=== PATIENT | female | born 1975 | race Caucasian/White ===

== ENCOUNTER 2024-05-05 11:18 | Outpatient (REF) | payer OTHER, SELFPAY ==
[2024-05-05 16:43] LABS: Alanine Aminotransferase 27 U/L (0-31); Anion Gap 13 (12-20); Aspartate Amino Transferase 25 U/L (5-31); Bilirubin Direct 0.1 mg/dL (0.0-0.5); Bilirubin Total 0.4 mg/dL (0.0-1.0); Blood Urea Nitrogen 18 mg/dL (9-16); Calcium 9.1 mg/dL (8.4-10.2); Carbon Dioxide 25 mmol/L (22-29); Chloride 106 mmol/L (96-108); Cholesterol 185 mg/dL (<200); Estimated Glomerular Filt Rate > 60; Glucose Random 92 mg/dL (60-115); HDL Cholesterol 43 mg/dL (>40); LDL Cholesterol Calculated 112 mg/dL (<100); Potassium 3.9 mmol/L (3.3-5.1); Sodium 140 mmol/L (135-145); Total Protein 7.2 g/dL (6.5-8.0); Triglycerides 150 mg/dL (<150)
[2024-05-05 17:22] LABS: Alkaline Phosphatase 90 U/L (39-117)
[2024-05-06 04:15] LABS: HIV AB/AG Nonreactive (Nonreactive); HIV Num 1 0.05 S/CO (0.00-0.99); ~HepC Num1 0.11 S/CO (0.00-0.79); ~Hepatitis C Antibody Nonreactive (Nonreactive)
== END 2024-05-05 11:19 | disposition home or self-care (01) ==
LOC: HO.CHCLDS 11:18
PROVIDERS: Visit Provider Student in an Organized Health Care Education/Training Program
DX: I10 Essential (primary) hypertension (principal); Z11.3 Encounter for screening for infections with a predominantly sexual mode of transmission
CPT/HCPCS: 36415; 80048; 80061; 80076; 86803; 87389

== ENCOUNTER 2024-05-12 14:41 | Outpatient (REF) | payer OTHER, SELFPAY ==
[2024-05-13 11:11] LABS: HPV 16,18/45 See PAP report
== END 2024-05-12 14:42 | disposition home or self-care (01) ==
LOC: HO.LNP 14:41
PROVIDERS: Visit Provider Family Medicine
DX: Z12.4 Encounter for screening for malignant neoplasm of cervix (principal)
CPT/HCPCS: 87624; 88175

== ENCOUNTER 2024-06-09 10:36 | Outpatient (REF) | payer OTHER, SELFPAY ==
--- NOTE | ~2024-06-09 | XR_ITS ---
EXAMINATION: XR CHEST CLINICAL INFORMATION: Cough. Wheezing. COMPARISON: Chest radiograph dated 12/07/2013. TECHNIQUE: 2 views of the chest were obtained. FINDINGS: The lungs are clear. The cardiomediastinal silhouette is normal in size. There is no pleural effusion or pneumothorax. No acute osseous abnormality. XR/XR chest 2V IMPRESSION: No acute cardiopulmonary findings. Electronically signed by: Houston Cruz MD 06/09/2024 12:35 PM [facility]STINA
== END 2024-06-09 10:37 | disposition home or self-care (01) ==
LOC: HO.HHCX 10:36
PROVIDERS: Visit Provider Emergency Medicine
DX: R05.1 Acute cough (principal)
CPT/HCPCS: 71046

== ENCOUNTER 2024-06-13 09:58 | Outpatient (REF) | payer OTHER, SELFPAY | END 2024-06-13 09:59 | disposition home or self-care (01) | LOC: HO.MAMMO 09:58 | PROVIDERS: PCP Student in an Organized Health Care Education/Training Program; Visit Provider Student in an Organized Health Care Education/Training Program | DX: Z12.31 Encounter for screening mammogram for malignant neoplasm of breast (principal) | CPT/HCPCS: 77063; 77067 ==

== ENCOUNTER → 2024-06-13 10:30 | Outpatient (BNV) | payer OTHER, SELFPAY | PROVIDERS: PCP Student in an Organized Health Care Education/Training Program; Visit Provider Internal Medicine | DX: Z12.31 Encounter for screening mammogram for malignant neoplasm of breast (principal) | CPT/HCPCS: 77063; 77067 ==

== ENCOUNTER 2024-10-14 11:47 | Outpatient (REF) | payer OTHER, SELFPAY ==
--- NOTE | ~2024-10-14 | US_ITS ---
EXAMINATION: MM DIAGNOSTIC DIGITAL BREAST TOMOSYNTHESIS, BILATERAL Bilateral Limited ultrasound. CLINICAL INFORMATION: Call back from screening for bilateral asymmetries. COMPARISON: Mammography: Comparison is made with relevant prior exams. TECHNIQUE: Digital breast mammography with tomosynthesis is performed in both the craniocaudal and mediolateral oblique views along with computer-aided detection (CAD). FINDINGS: The breasts are heterogeneously dense, which may obscure small masses (ACR BI-RADS breast composition Category c). Left: The previously seen asymmetry in the lower left breast on MLO view does not persist on additional imaging projections and likely represented overlapping breast tissue. There are no suspicious calcifications masses or other abnormal findings. Targeted color Doppler ultrasound scanning in the lower central breast demonstrates a simple cyst at 6:00 2 cm from the nipple measuring 7 x 6 x 5 mm otherwise scanning from 40 8:00 demonstrates normal fibroglandular breast tissue. Right: Focal asymmetry in the upper outer breast posterior depth persist on additional imaging projections. In the retroareolar region there are a few subcentimeter oval masses. No suspicious calcifications or other abnormal findings. Targeted color Doppler ultrasound scanning in the upper outer quadrant demonstrates normal fibronodular breast tissue. Targeted color Doppler ultrasound scanning in the retroareolar region demonstrates a hypoechoic oval simple cyst at 9:00 5 cm from nipple measuring 5 x 4 x 4 mm with likely correlates with the oval mass on mammography. Results are provided to the patient at time of visit by the technologist. US/US breast BI limited mamm only IMPRESSION: Left: Simple cyst on ultrasound. Benign. Right: 1. Focal asymmetry in the upper outer quadrant posterior depth without sonographic correlate. Recommend six-month follow-up mammography for further evaluation of stability. 2. Retroareolar oval masses one of which was demonstrated to be a simple to minimally, located cyst on ultrasound. Recommend 6 month follow-up mammography for further evaluation of stability. ASSESSMENT: BI-RADS BI-RADS 3 - Probably benign finding(s) - 6 month follow-up suggested RECOMMENDATION: 6 Month F/U This patient's information was entered into a reminder system with a target due date for their next mammogram. Electronically signed by: Michelle Ceballos DO 10/14/2024 02:56 PM EDT
--- OUTSIDE RECORDS SUMMARY | 2024-10-14 13:20 | XMS_ITS | Clinical Summary ---
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 Role Phone Unavailable Primary Care Provider Unavailabl e Social History Tobacco Use Types Packs/Day Years Used Date Smoking Tobacco: Never Assessed Comments Unknown Sex and Gender Information Value Date Recorded Sex Assigned at Not on file Legal Sex Female 12:23 AM EST Gender Identity Not on file Sexual Orientation Not on file Plan of Treatment Health Maintenance Due Date Last Done Comments Breast Cancer Screening 1975 DTaP,Tdap,and Td Vaccines (1 - Tdap) 01/08/1995 Hepatitis B Vaccines (1 of 3 - 19+ 3-dose series) 01/08/1995 Cervical Cancer Screening: P ap Smear 01/08/1997 COVID-19 Vaccine (2023-2 5 season) 2024 Influenza Vaccine (Season Ended) 2025 HIB Vaccines Aged Out No longer eligi ble based on patient's age to complete this topic HPV Vaccines Aged Out No longer eligi ble based on patient's age to complete this topic Hepatitis A Vaccines Aged Out No long er eligible based on patient's age to complete this topic IPV Vaccines Aged Out No longer eligi ble based on patient's age to complete this topic MMR Vaccines Aged Out No longer eligi ble based on patient's age to complete this topic Meningococcal ACWY Vaccine Aged Out N o longer eligible based on patient's age to complete this topic Meningococcal B Vaccine Aged Out No l onger eligible based on patient's age to complete this topic Pneumococcal Vaccine: Pediat rics (0 to 5 Years) and At-Risk Patients (6 to 64 Years) Aged Out No longer eligible b ased on patient's age to complete this topic RSV Immunization Patients Un melissa 20 months Aged Out No longer eligible b ased on patient's age to complete this topic Varicella Vaccines Aged Out No longer eligible based on patient's age to complete this topic
--- OUTSIDE RECORDS SUMMARY | 2024-10-14 13:20 | XMS_ITS | Clinical Summary ---
Author Organization [employer] Address [address] [facility] [address] [place] [address] Care Team Providers Care Apns Name Role Phone Cortney Naidu MD Primary Care Provider [phone] Allergies No known active allergies Medications diphenhydrAMIN E (BENADryl) 25 MG capsule Take 2 capsules (50 mg) by mouth if needed at bedtime for itching. May take 1-2 capsules prn rashor itching 30 capsule 03/22/20 23 Active fluticasone (Flonase Allergy Relief) 50 MCG/ACT nasal spray Administer 1 spray into each nostril Once per day. Shake gently. Before first use, prime pump. After use, clean tip and replace cap. 16 g 12 06/09/20 24 025 Active albuterol 108 (90 Base) MCG/ACT inhaler Inhale 2 puffs every 4 (four) hours if needed for wheezing or shortness of breath. 18 g 1 06/09/20 24 025 Active Spacer/Aero-Ho lding Chambers (OptiChamber Hollie) misc 1 each every 4 (four) hours if needed (asthma). 1 each 06/09/20 24 Active losartan (Cozaar) 100 MG tablet TAKE ONE TABLET DAILY 30 tablet 3 08/04/19 25 Active hydroCHLOROthi azide (HYDRODiuril) 25 MG tablet Take 1 tablet (25 mg) by mouth Once per day. 30 tablet 11 09/18/19 25 026 Active cetirizine (ZyrTEC) 10 MG tablet Take 1 tablet (10 mg) by mouth Once per day. 30 tablet 11 09/18/19 25 04/03/2 026 Active Ketotifen Fumarate (Alaway) 0.035 % solution Administer 1 drop into affected eye(s) if needed in the morning and at bedtime (eye itching). 10 mL 2 09/18/19 25 Active acetaminophen (Tylenol 8 Hour) 650 MG ER tablet Take 1 tablet (650 mg) by mouth every 8 (eight) hours if needed for mild pain. Do not crush, chew, or split. 40 tablet 1 09/18/19 25 025 Active amLODIPine (Norvasc) 10 MG tablet Take 1 tablet (10 mg) by mouth Once per day. 90 tablet 1 05/12/20 24 025 Discontinued(Si de effects) loratadine (Claritin) 10 MG tablet Take 1 tablet (10 mg) by mouth Once per day. 30 tablet 3 06/09/20 24 025 Discontinued Nirmatrelvir&R itonavir 300/100 (Paxlovid, 300/100,) 20 x 150 MG & 10 x 100MG tablet therapy pack Take 1 Dose by mouth 2 times daily for 5 days. 30 each 09/18/19 25 025 benzonatate (Tessalon Perles) 100 MG capsule Take 1 capsule (100 mg) by mouth if needed in the morning, at noon, and at bedtime for cough for up to 10 days. Do not crush or chew. 30 capsule 09/18/19 25 025 Active Problems Problem Noted Date Diagnosed Date Cervical cancer screening 05/12/2024 Assessment & Plan (05/12/2024 10:21 AM EST): 49 y.o. here for cervical cancer screening. Will continue monitoring following ASCCP guidelines. Primary hypertension 10/17/2022 Assessment & Plan (05/12/2024 9:09 PM EST): BP is elevated. Prescribing Amlodipine, follow up with nurse in one week. Nursing Visit Instructions: - If SBP < 140/DBP <90 mmHg in more than 75% of home self-monitoring, continue current medication regimen and make f/u with PCP in 3 month - If SBP >140-165/DBP >90-115 mmHg , add diuretic to regimen (hydrochlorothiazide 12.5 mg) and f/u with PCP in 1 month - If SBP > 165/ DBP> 115 mmHg, consult with covering provider - If SBP <90/DBP <50 mmHg, consult with covering provider. Relevant Medications Amlodipine (Norvasc) 10 MG tablet Encounters Date Type Department Care Team Description 10/13/2024 Orders Only [facility] [address] [place] [address] Angeline Johns 09/17/2024 10:20 AM EDT Office Visit [facility] [address] [place] [address] Demi Martin DO COVID-19 (Primary Dx); Primary hypertension 09/10/2024 3:00 PM EDT Clinical Support [facility] [address] [place] [address] Caty Fernandez RN Primary hypertension [I10] 09/10/2024 Travel 08/03/2024 Refill [facility] [address] [place] [address] Cortney Naidu MD from Last 3 Months Immunizations Name Administration Dates Next Due Tdap 05/12/2024 Family History Medical History Relation Name Comments HIV Father HIV Mother Relation Name Status Comments Father Mother Social History Tobacco Use Types Packs/Day Years Used Date Smoking Tobacco: Never Passive Smoke Exposure: Never Smokeless Tobacco: Never Tobacco Cessation:Counseling Given: Not Answered Alcohol Use Standard Drinks/Week Comments Never 0 (1 standard drink = 0.6 oz pur e alcohol) Depression Answer Date Recorded Patient Health Questionnaire-9 Score 3 05/05/2024 Patient Health Questionnaire-9 Score 3 05/05/2024 Last PHQ-9: Questionnaire Data Not on file 1 07/05/2023 Housing Stability Answer Date Recorded What is your housing situation today? I have maribel hurtado 04/28/[address] you li ve. Do you have problems with any of the following? None of the above 04/28/2024 Food Insecurity Answer Date Recorded Within the past 12 months, y ou worried that your food would run out before you got money to buy more: Never True 04/28/2024 Within the past 12 months,th e food you bought just didn't last and you didn't have enough money to get more: Never True 05/2024 Transportation Answer Date Recorded In the past 12 months, has l ack of transportation kept you from medical appts, meetings, work or from getting things needed for daily living? No 04/28/2024 Utilities Answer Date Recorded In the past 12 months, has t he electric, gas, oil or water company threatened to shut off services in your home? No 04/28/2024 Depression Answer Date Recorded Patient Health Questionnaire-2 Score 0 05/05/2024 Internet Access Answer Date Recorded Internet Access Q1 No 05/05/2024 Internet Access Q2 I do not want or need it 04/17 Comments No Sex and Gender Information Value Date Recorded Sex Assigned at Female 04/16/2022 10:23 AM EDT Legal Sex Female 10:23 AM EDT Gender Identity Female 04/16/2022 10:23 AM EDT Sexual Orientation Straight 04/16/2022 10 :23 AM EDT Last Filed Vital Signs Vital Sign Reading Time Taken Comments Blood Pressure 151/105 09/17/2024 10:08 AM EDT Pulse 83 09/17/2024 10:08 AM EDT Temperature 36.7 ??C (98.1 ??F) 09/17/2024 10:08 AM E DT Respiratory Rate 18 09/17/2024 10:08 AM EDT Oxygen Saturation 96% 09/17/2024 10:08 AM EDT Inhaled Oxygen Concentration - - Weight 88.5 kg (195 lb) 09/17/2024 10:08 AM EDT Height 159 cm (5' 2.6 ) 05/12/2024 9:52 AM EST Body Mass Index 34.99 05/12/2024 9:52 AM EST Plan of Treatment Upcoming Encounters Date Type Department Care Team (Late st Contact Info) Description 10/22/2024 3:00 PM EDT Clinical Support [facility] [address] [place] [address] Health Maintenance Due Date Last Done Comments CT Colonography 1975 Colonoscopy 1975 FIT 1975 FOBT 1975 Sigmoidoscopy 1975 Family Planning (PISQ) 01/08/1991 Hepatitis B Vaccines (1 of 3 - 19+ 3-dose series) 01/08/1995 Influenza Vaccine (#1) 2024 Postp oned from 02/16/2024 (Patient Refused) Alcohol/Substance Use Screening 05/05/2025 05/05/2024 COVID-19 Vaccine (4 - 2023-2 5 season) 2025 08/27/2021, 12/11/2020, 11/20/2020 Postponed from 02/16/2024 (Patient Refused) Depression Screening 05/05/2025 05/05/2024, 05/05/2024 SDOH Screening 05/05/2025 05/05/2024 Tobacco Screening 09/17/2025 09/17/2024 Zoster Vaccines (1 of 2) 01/08/2026 Mammogram 06/13/2026 06/13/2024 Colorectal Cancer Screening 05/25/2027 FIT DNA/Cologuard 05/25/2027 05/25/2024 Lipid Panel 05/05/2029 05/05/2024, 12/15/2020 Cervical Cancer Screening 05/12/2029 HPV/Cotest 05/12/2029 05/12/2024 Pap Smear 05/12/2029 05/12/2024 DTaP/Tdap/Td Vaccines (2 - T d or Tdap) 05/12/2034 05/12/2024 RSV Patients and Patients Aged 60 years or older (1 - 1-dose 75+ series) 01/08/2051 HIV Screening Completed 05/05/2024 Hepatitis C Screening Completed 05/05/2024 HIB Vaccines Aged Out No longer eligi [...] patient's age to complete this topic Meningococcal Vaccine Aged Out No espinoza johnathan eligible based on patient's age to complete this topic Pneumococcal Vaccine: Pediatrics (0 to 5 Years) and At-Risk Patients (6 to 49) Years) Aged Out No longer eligible b ased on patient's age to complete this topic RSV under 20 months Aged Out No longe r eligible based on patient's age to complete this topic Rotavirus Vaccines Aged Out No longer eligible based on patient's age to complete this topic Procedures Procedure Name Priority Date/Time Associated Diagnosis Comments POCT INFLUENZA B (ID NOW RAPID MOLECULAR) Routine 09/17/2024 10:24 AM EDT COVID-19 POCT INFLUENZA A (ID NOW RAPID MOLECULAR) Routine 09/17/2024 10:24 AM EDT COVID-19 POCT RAPID COVID ANTIGEN Routine 09/17/2024 10:24 AM EDT COVID-19 BI MAMMOGRAM SCREENING TOMOSYNTHESIS BILATERAL Routine 06/13/2024 10:15 AM EST Encounter for screening mammogram for breast cancer LAB COLOGUARD?? COLON CANCER SCREEN Routine 05/25/2024 9:15 AM EST Screening for colon cancer PAP SMEAR Routine 05/12/2024 10:20 AM EST Cervical cancer screening HPV MRNA E6/E7 REFLEX TO HPV 16, 18/45 Routine 05/12/2024 12:00 AM EST HEPATITIS C AB W/REFL TO HCV RNA, QN, PCR Routine 05/05/2024 11:22 AM EST Screen for STD (sexually transmitted disease) HIV 1/2 ANTIGEN/ANTIBODY, FOURTH GENERATION W/RFL Routine 05/05/2024 11:22 AM EST Screen for STD (sexually transmitted disease) LIPID PANEL, STANDARD Routine 05/05/2024 11:22 AM EST Primary hypertension from Last 3 Months or Most Recently Relevant to Health Maintenance Results * Influenza B (ID NOW Rapid Molecular) (09/17/2024 10:24 AM EDT) Influenza B Negative Negative, Indeterminate [facility] Swab 09/17/2024 10:2 4 AM EDT Demi Martin DO POINT OF CARE TEST ENTER/TATUM T ORDERABLES Final Result Performing Organization Address [facility] Co de Phone Number [facility] [address] [place] [address] [phone] * Influenza A (ID NOW Rapid Molecular) (09/17/2024 10:24 AM EDT) Influenza A Negative Negative, Indeterminate [facility] Swab 09/17/2024 10:2 4 AM EDT us Demi Martin DO POINT OF CARE TEST ENTER/TATUM T ORDERABLES Final Result Performing Organization Address [facility] Co de Phone Number [facility] [address] [place] [address] [phone] * (ABNORMAL) POCT Rapid COVID Ag (09/17/2024 10:24 AM EDT) Rapid COVID Ag Positive [facility] Swab 09/17/2024 10:2 4 AM EDT Demi Martin DO POINT OF CARE TEST ENTER/TATUM T ORDERABLES Final Result Performing Organization Address [facility] de Phone Number [facility] [address] [place] [address] [phone] * BI Mammogram Screening Tomosynthesis Bilateral (06/13/2024 10:15 AM EST) Anatomical Region Laterality Modality Breast Bilateral Mammography 06/13/2024 10:1 5 AM EST Narrative 06/26/2024 5:13 PM EST ? [facility] ? [address] ?[place] [address] ? Mammography Report ? Signed ? Patient: Shultz,Lenore ?MR#: [id number] ?? 1 ? : 1975 ?Acct:[id number] ? Age/Sex: 49 / F ?ADM Date: 12/28/24 ? Loc: HO.MAMMO ? Attending Dr: Cortney Naidu MD ? Ordering Physician: Cortney Naidu MD ?Results: 0Incomp ?? lete: Needs Additional Imaging Evaluation ? Date of Service: 06/13/24 ?Follow Up: Additional Imagi ?? ng ? Procedure(s): MM tomosynthesis screening BI ?? Accession Number(s): [id number] ? cc: Cortney Naidu MD ? EXAMINATION: ?? MM SCREENING DIGITAL BREAST TOMOSYNTHESIS, BILATERAL ? CLINICAL INFORMATION: ? Screening. Asymptomatic. ? COMPARISON: ?? Mammography: Baseline. ? TECHNIQUE: ?? Digital breast mammography with tomosynthesis is performed in both the ?? craniocaudal and mediolateral oblique views along with computer-aided ?? detection (CAD). ? FINDINGS: ?? The breasts are heterogeneously dense, which may obscure small masses ?? (ACR BI-RADS breast composition Category c). ?? Left: ?? Asymmetry lower breast anterior depth on MLO view. ?? No suspicious calcifications or other abnormal findings. ? Right: ?? Focal asymmetry upper outer breast middle to posterior depth. ?? Focal asymmetry retroareolar region middle depth. ?? No suspicious other abnormal findings or calcifications. ? MM/MM tomosynthesis screening BI ?? IMPRESSION: ?? Additional imaging is recommended ? ASSESSMENT: ? BI-RADS BI-RADS 0 - Incomplete: Needs additional Imaging. ? RECOMMENDATION: ?? 1. Additional views of the bilateral breasts ?? 2. Targeted ultrasound if warranted after review of the additional ?? views. ?? 3. Radiology department staff will contact the patient for additional ?? imaging. ? Additional Imaging required ? This examination should not preclude the clinical evaluation of a ?? suspicious palpable abnormality. ? This patient's information was entered into a reminder system with a ?? target due date for their next mammogram. ? Electronically signed by: ??Michelle Ceballos DO ??06/26/2024 05:10 PM EST ? Dictated By: ?Michelle Ceballos DO ? Signed By: ?<Electronically signed by Michelle Ceballos, DO in OV> ? 06/26/240 ? DD/ 1015 ? TD/TT: 06/13/24 1028 ? Truck Mechanic Apprentice: ? Procedure Note Donotuseinterpreter, Image - 06/26/2024 [place] [facility] [address] [place] [address] Mammography Report Signed Patient: Lenore ShultzMR#: [id number] 1 : 1975Acct:[id number] Age/Sex: 49 / FADM Date: 06/13/24 Loc: HO.MAMMO Attending Dr: Cortney Naidu MD Ordering Physician: Cortney Naidu MDResults: 0Incomp lete: Needs Additional Imaging Evaluation Date of Service: 06/13/24Follow Up: Additional Imagi ng Procedure(s): MM tomosynthesis screening BI Accession Number(s): [id number] cc: Cortney Naidu MD EXAMINATION: MM SCREENING DIGITAL BREAST TOMOSYNTHESIS, BILATERAL CLINICAL INFORMATION: Screening. Asymptomatic. COMPARISON: Mammography: Baseline. TECHNIQUE: Digital breast mammography with tomosynthesis is performed in both the craniocaudal and mediolateral oblique views along with computer-aided detection (CAD). FINDINGS: The breasts are heterogeneously dense, which may obscure small masses (ACR BI-RADS breast composition Category c). Left: Asymmetry lower breast anterior depth on MLO view. No suspicious calcifications or other abnormal findings. Right: Focal asymmetry upper outer breast middle to posterior depth. Focal asymmetry retroareolar region middle depth. No suspicious other abnormal findings or calcifications. MM/MM tomosynthesis screening BI IMPRESSION: Additional imaging is recommended ASSESSMENT: BI-RADS BI-RADS 0 - Incomplete: Needs additional Imaging. RECOMMENDATION: 1. Additional views of the bilateral breasts 2. Targeted ultrasound if warranted after review of the additional views. 3. Radiology department staff will contact the patient for additional imaging. Additional Imaging required This examination should not preclude the clinical evaluation of a suspicious palpable abnormality. This patient's information was entered into a reminder system with a target due date for their next mammogram. Electronically signed by: Michelle Ceballos DO 06/26/2024 05:10 PM EST Dictated By: Michelle Ceballos DO Signed By: <Electronically signed by Michelle Ceballos DO in OV> 06/26/24 1710 DD/ 1015 TD/TT: 06/13/24 1028 Truck Mechanic Apprentice: Cortney Naidu MD IM BI PROCEDURES Final Result * Cologuard?? colon cancer screening (05/25/2024 9:15 AM EST) Cologuard Result Negative Negative 06/03/20 12:49 AM EST [facility] (ComunitaeIA #:[id number]) Comment: NEGATIVE TEST RESULT. A negative Cologuard result indicates a low likelihood that a colorectal cancer (CRC) or advanced adenoma (adenomatous polyps with more advanced pre-malignant features) ??is present. The chance that a person with a negative Cologuard test has a colorectal cancer is less than 1 in 1500 (negative predictive value >99.9%) or has an ??advanced adenoma is less than ??5.3% (negative predictive value 94.7%). These data are based on a prospective cross-sectional study of 10,000 individuals at average risk for colorectal cancer who were screened with both Cologuard and colonoscopy. (Mohan Mccauley al, N Engl J Med 2014;370(14):1286- 1297) The normal value (reference range) for this assay is negative. COLOGUARD RE-SCREENING RECOMMENDATION: Periodic colorectal cancer screening is an important part of preventive healthcare for asymptomatic individuals at average risk for colorectal cancer. ??Following a negative Cologuard result, the [place] [employer] and U.S. Multi-Society Task Force screening guidelines recommend a Cologuard re-screening interval of 3 years. References: [place] [employer] Guideline for Colorectal Cancer Screening: https://www.cancer.org/cancer/wpiwg-zqmlxe-fassas/xljuxhuvv-zqjvjmbbp-doiazdz/ac s-rec ommendations.html.; Anurag DK, Robert CR, Sierra ReyesK, Colorectal Cancer Screening: Recommendations for Physicians and Patients from the U.S. Multi-Society Task Force on Colorectal Cancer Screening , Am J Gastroenterology 2017; 112:2320-0567. TEST DESCRIPTION: Composite algorithmic analysis of stool DNA-biomarkers with hemoglobin immunoassay. ?? Quantitative values of individual biomarkers are not reportable and are not associated with individual biomarker result reference ranges. Cologuard is intended for colorectal cancer screening of adults of either sex, 45 years or older, who are at average-risk for colorectal cancer (CRC). Cologuard has been approved for use by the U.S. FDA. The performance of Cologuard was established in a cross sectional study of average-risk adults aged 50-84. Cologuard performance in patients ages 45 to 49 years was estimated by sub-group analysis of near-age groups. Colonoscopies performed for a positive result may find as the most clinically significant lesion: colorectal cancer [4.0%], advanced adenoma (including sessile serrated polyps greater than or equal to 1cm diameter) [20%] or non- advanced adenoma [31%]; or no colorectal neoplasia [45%]. These estimates are derived from a prospective cross-sectional screening study of 10,000 individuals at average risk for colorectal cancer who were screened with both Cologuard and colonoscopy. (Mohan Mccauley al, N Engl J Med 2014;370(14):2752-3146.) Cologuard may produce a false negative or false positive result (no colorectal cancer or precancerous polyp present at colonoscopy follow up). A negative Cologuard test result does not guarantee the absence of CRC or advanced adenoma (pre-cancer). The current Cologuard screening interval is every 3 years. ([place] [employer] and U.S. Multi-Society Task Force). Cologuard performance data in a 10,000 patient pivotal study using colonoscopy as the reference method can be accessed at the following location: www.[employer].Theracos/results. Additional description of the Cologuard test process, warnings and precautions can be found at www.colPumodord.com. Stool specimen (specimen) 05/25/2024 9:15 AM EST 05/26/2024 1:24 PM EST us Cortney Naidu MD LAB MOLECULAR DIAGNOSTICS ERMIAS TSE Final Result [facility] (CLIA #:[id number]) [address] [place] [id number], * Pap Smear (05/12/2024 10:20 AM EST) Swab Cervix uteri structure / Unknown 05/12/2024 10:20 AM EST 05/13/2024 8:30 AM EST Narrative [facility] - 05/20/2024 10:42 AM EST ----- ------- Name: Lenore Shultz ?Age/Sex: 49/F ? : 1975 Unit#: [id number] ?? Attend Dr: Mariajose Isaac MD ?Re05/12/24 ?Status: DEP REF ? Location: HO.LNP ?Disch: ? ----- ------- SPEC : [id number] ?RECD: 05/13/24 ? STATUS: ??SOUT ? REQ NUM: [id number] ? LUCRECIA: 05/12/24 ? SUBM DR: Mariajose Isaac MD ? ENTERED: ??05/13/24 ?SP TYPE: Pap Smr ?OTHR DR: ? ORDERED: ??Pap Smear ? Interpretation ?? Satisfactory for evaluation. ?? Negative for intraepithelial lesion or malignancy. ?? Coccobacilli consistent with shift in vaginal zuhair. ? HPV High Risk: ??Negative ? HPV Genotyping 16: ??Negative ?? HPV Genotyping 18: ??Negative ----- ------- Signed (signature on file) MARCIANO Cates (ASC) 05/20/24 1042 ? ----- ------- ? END OF REPORT ? Mariajose Isaac MD LAB CYTOLOGY ORDERABLES Final Result Performing Organization Address [facility]/ZIP Co de Phone Number [facility] [address] [place] [phone] * HPV mRNA E6/E7 w/Reflex to HPV Genotypes 16, 18/45 (05/12/2024 12:00 AM EST) Historical Provider LAB CYTOLOGY ORDERABLES F inal Result * Hepatitis C Antibody with Reflex to HCV, RNA, Quantitative, Real-Time PCR (05/05/2024 11:22 AM EST) Hepatitis C Antibody Nonreactive Nonreactive [facility] Comment:Antibodies to HCV no t detected; does not exclude early acuteHCV infection. Blood Venous blood specimen / Unknown 05/05/2024 11:22 AM EST 05/05/2024 2:11 PM EST Cortney Naidu MD LAB BLOOD ORDERABLES Final Resul t Performing Organization Address [facility]/ZIP Co de Phone Number [facility] [address] [place] [phone] * HIV-1/2 Antigen and Antibodies, Fourth Generation, with Reflexes (05/05/2024 11:22 AM EST) HIV AB/AG Nonreactive Nonreactive [facility] Comment:HIV-1 p24 Ag and/or HIV-1/HIV-2 Ab not detected.A test result that is nonreactive does not exclude thepossibility of exposure to or infection with HIV-1 and/orHIV-2. Nonreactive results in this assay for individualswith prior exposure to HIV-1 and/or HIV-2 may be due toantigen and antibody levels that are below the limit ofdetection of this assay.The [employer] HIV Ag/Ab Combo assay result andsupplemental assay results should be interpreted inconjunction with the patient's clinical presentation,history and other laboratory results. If the results areinconsistent with clinical evidence, additional testing issuggested to confirm the result. Blood Venous blood specimen / Unknown 05/05/2024 11:22 AM EST 05/05/2024 2:11 PM EST us Cortney Naidu MD LAB BLOOD ORDERABLES Final Resul t [facility] [address] [place] [address] [phone] * (ABNORMAL) Lipid Panel, Standard (05/05/2024 11:22 AM EST) Triglycerides 150(H) <150 mg/dL [facility] Comment:Desirable Triglyceri de: less than 150 mg/dLBorderline High Triglyceride 150-199 mg/dLHigh Triglyceride: 200-499 mg/dLVery High Triglyceride: greater than or equal to 5OO mg/dL Cholesterol 185 <200 mg/dL [facility] Comment:Desirable Cholestero l: less than 200 mg/dLBorderline High Cholesterol: 200-239 mg/dLHigh Cholesterol: greater than 239 mg/dL LDL Cholesterol Calculated 112(H) <100 mg/dL [facility] Comment:Desirable LDL: less than 100 mg/dLNear Optimal/Above Optimal LDL: 110- 129 mg/dLBorderline High LDL: 130-159 mg/dLHigh LDL: 160-189 mg/dLVery High LDL: greater than or equal to 190 mg/dL HDL Cholesterol 43 >40 mg/dL [facility] Comment:Desirable HDL: great er than 40 mg/dL Note: This HDL assay may give artificially low results in patients with liver disease. Blood Venous blood specimen / Unknown 05/05/2024 11:22 AM EST 05/05/2024 2:11 PM EST us Cortney Naidu MD LAB BLOOD ORDERABLES Final Resul t [facility] [address] [place] [address] [phone] from Last 3 Months or Most Recently Relevant to Health Maintenance Insurance [facility] Care Teams Apns Relationship Specialty Start Date End Date Cortney Naidu MD [address] [place] [phone] PCP - General Family Medicine 02/10/20
--- OUTSIDE RECORDS SUMMARY | 2024-10-14 13:20 | XMS_ITS | Data Portability ---
Author Organization [facility] [address] Address [address] [place] [address] Care Team Providers Care Fitness Centre Manager Name Role Phone [facility] Primary Care Provider [phone] Assessment No assessment recorded. Plan of Treatment Reminders Order Date Submit Date Provider Last Modified By Organization Details Last Modified Time Details Appointments None recorded. Lab None recorded. Referral None recorded. Procedures None recorded. Surgeries None recorded. Imaging None recorded. Medication Orders amoxicillin 875 mg-potassiu m clavulanate 125 mg tablet 2022 023 [facility]armacy #[id number], [address] [place], [address], 3 10:58:05 prednisone 20 mg tablet 2022 023 [facility]armacy #[id number], [address] [place], [address], 3 10:58:05 Patient TargetsNo targets recorded. Patient Instructions Encounter Date Encounter Id Patient Instructions Last Modified By Organization Details Last Modified Time 07/15/2022 [id number] earache: care instructions Not available 07/15/2022 10:58:03 ear infection (otitis media): care instructions Not available 07/15/2022 10:58:03 Sinusitis is an infection of the lining of the sinus cavities in your head. Sinusitis often follows a cold. It causes pain and pressure in your head and face. In most cases, sinusitis gets better on its own in 1 to 2 weeks. But some mild symptoms may last for several weeks. Sometimes antibiotics are needed. if you are having problems. It's also a good idea to know your test results and keep a list of the medicines you take. How can you care for yourself at home? Take an ihje-uzh-hecydit pain medicine. Avoid Ibuprofen, Aleve and Aspirin if . If the doctor prescribed antibiotics, take them as directed. Do not stop taking them just because you feel better. You need to take the full course of antibiotics. Be careful when taking jydb-ikd-mfbxduq cold or influenza (flu) medicines and Tylenol at the same time. Many of these medicines have acetaminophen, which is Tylenol. Read the labels to make sure that you are not taking more than the recommended dose. Too much acetaminophen (Tylenol) can be harmful. Breathe warm, moist air from a steamy shower, a hot bath, or a sink filled with hot water. Avoid cold, dry air. Using a humidifier in your home may help. Follow the directions for cleaning the machine. Use saline (saltwater) nasal washes. This can help keep your nasal passages open and wash out mucus and bacteria. You can buy saline nose drops at a grocery store or drugstore. Or you can make your own at home by adding 1 teaspoon (5 millilitres) of salt and 1 teaspoon (5 millilitres) of baking soda to 2 cups (500 mL) of distilled water. If you make your own, fill a bulb syringe with the solution, insert the tip into your nostril, and squeeze gently. Blow your nose. Put a hot, wet towel or a warm gel pack on your face 3 or 4 times a day for 5 to 10 minutes each time. Try a decongestant nasal spray like oxymetazoline (Drixoral). Do not use it for more than 3 days in a row. Using it for more than 3 days can make your congestion worse. Not available 07/15/2022 10:57:44 An ear infection may start with a cold and affect the middle ear (otitis media). It can hurt a lot. Most ear infections clear up on their own in a couple of days and do not need antibiotics. Also, antibiotics do not work against viruses, which may be the cause of your infection. Regular doses of pain relievers are the best way to reduce your fever and help you feel better. How can you care for yourself at home? Take pain medicines exactly as directed. If the doctor gave you a prescription medicine for pain, take it as prescribed. If you are not taking a prescription pain medicine, take an ntqs-rkx-ydzhsoa medicine, such as acetaminophen (Tylenol), ibuprofen (Advil, Motrin), or naproxen (Aleve). Read and follow all instructions on the label. Do not take two or more pain medicines at the same time unless the doctor told you to. Many pain medicines have acetaminophen, which is Tylenol. Too much acetaminophen (Tylenol) can be harmful. Plan to take a full dose of pain reliever before bedtime. Getting enough sleep will help you get better. Try a warm, moist face cloth on the ear. It may help relieve pain. If your doctor prescribed antibiotics, take them as directed. Do not stop taking them just because you feel better. You need to take the full course of antibiotics. Not available 07/15/2022 10:58:01 Reason for Referral None Reported. Problems No Known Problems Medical Equipment None Reported. Allergies No known drug allergies Medications Name Sig Start Date Stop Date Status Note LastModified by Organization Details LastModified Time prednisone 20 mg tablet Take 2 tablets every day by oral route in the morning for 3 days. 023 active Not Available Not Available Not Avai lable amoxicillin 875 mg-potassium clavulanate 125 mg tablet Take 1 tablet every 12 hours by oral route with meals for 10 days. 023 active Not Available Not Available Not Avai lable Vitals Date Recorded Body height Body mass index (BMI) Body weight Pain severity - 0-10 verbal numeric rating [Score] - Reported Body temperature Respiratory rate Oxygen saturation Oxygen saturation in Arterial blood by Pulse oximetry Heart rate Systolic blood pressure Diastolic blood pressure Provider Name and Address Organization Details Last Updated DateTime 3 152.4 cm 35 kg/m2 34090.0 3 g 10 97.9 [degF] 18 /min 97 % 97 % 91 /min 131 mm[Hg] 84 mm[Hg] ERICA Lopez [facility] 3 10:19:59 Social History Question Answer Notes LastModified by Organizat ion Details LastModified Time Tobacco Smoking Status Never Smoker [facility] 07/15/2022 10:18:52 What Is Your Level Of Alcohol Consumption? None Information not available 07/15/2022 Have You Had Direct Contact, Or Contact During Intimacy, With Monkeypox Rash, Scabs, Or Body Fluids From A Person With Monkeypox? No Information not available 07/15/2022 Do You Use Any Illicit Or Recreational Drugs? No Information not available 07/15/2022 Have You Recently Traveled Abroad? No Information not available 07/15/2022 Do You Or Have You Ever Used Any Other Forms Of Tobacco Or Nicotine? No Information not available 07/15/2022 Sex: Unknown Functional Status None recorded. Mental Status None recorded. Family History Relationship Description Onset Age of this Age Resolved Age Notes LastModified by Organization Details LastModified Time Father No current problems or disability Not available 07/15 10:18:44 Mother No current problems or disability Not available 07/15 10:18:44 Medical History No medical history recorded. Gynecological HistoryNo gynecological history recorded. Obstetrics History GPAL:G 0 P 0 0 0 0 Immunizations Vaccine Type Date Status Note Provider Nam e and Address Organization Details Recorded Time COVID-19, mRNA, LNP-S, PF, 30 mcg/0.3 mL dose 11/20/2020 completed ERICA DEPINTO null, [place] - [facility] 07/15/2022 10:18:28 COVID-19, mRNA, LNP-S, PF, 30 mcg/0.3 mL dose 12/11/2020 completed ERICA DEPINTO null, [place] - [facility] 07/15/2022 10:18:28 Past Encounters Encounter ID Performer Location Encounter Start Date Encounter Closed Date Diagnosis/Indication Diagnosis SNOMED-CT Code Diagnosis ICD10 Code Diagnosis Note [id number] [address] [facility] [address] [facility] [address] 06/25/2020 18:45:01 06/25/2020 20:02:48 [id number] [address] [place] [address] 12/05/2018 11:26:09 12/05/2018 11:41:39 [id number] [address] [address] [place] [address] 07/08/2020 17:47:41 07/08/2020 19:31:11 [id number] Agustín Saini NP [address] [place] [address] 07/15/2022 10:03:49 07/15/2022 11:03:34 Acute right otitis media 569000914 H66.91 Health Concerns Section Related Observation LastModified by Organization Detai ls LastModified Time None Recorded Concern Status LastModified by Organization Details LastModified Time None Recorded Advance Directives Directive None Recorded Payers Encounter Date Sequence Insurance Name Policy Number Policy Barton Covered Member ID Barton Member ID Guarantor Name 07/08/2020 1 [facility] (O) [id number] Lenore Shultz [id number] Lenore Shultz 07/15/2022 1 [facility] (O) [id number] Lenore Shultz [id number] Lenore Shultz Notes Date Note Type Note Provider Name and Address Organization Details Recorded Time 07/15/2022 text/html CongestionReport ed bypatient.Notes:right ear pain , nasal congestion with post nasal drip x 3 days. denies nay fever or fever with chills. no SOB or respiratory distress. Agustín Saini NP [address] [place], [address], [place] - [facility] 07/15/2022 10:58:59 OBGyn Episode No OBEpisode recorded.
--- OUTSIDE RECORDS SUMMARY | 2024-10-14 13:20 | XMS_ITS | Encounter Summary ---
Author Organization [employer] Address [address] [place] [address] Care Team Providers Care Strip Cutting Machine Operator Name Role Phone Cortney Naidu MD Primary Care Provider [phone] Encounter Details Date Type Department Care Team (Late st Contact Info) Description 10/13/2024 Orders Only [facility] MED & PEDS [address] [place] [address] Angeline Johns Social History Tobacco Use Types Packs/Day Years Used Date Smoking Tobacco: Never Passive Smoke Exposure: Never Smokeless Tobacco: Never Alcohol Use Standard Drinks/Week Comments Never 0 [...] Orientation Straight 04/16/2022 10 :23 AM EDT documented as of this encounter Plan of Treatment Upcoming Encounters Date Type Department Care Team (Late st Contact Info) Description 10/22/2024 3:00 PM EDT Clinical Support [facility] MED & PEDS [address] [place] [address] documented as of this encounter Procedures Procedure Name Priority Date/Time Associated Diagnosis Comments HPV MRNA E6/E7 REFLEX TO HPV 16, 18/45 Routine 05/12/2024 12:00 AM EST documented in this encounter Results * HPV mRNA E6/E7 w/Reflex to HPV Genotypes 16, 18/45 (05/12/2024 12:00 AM EST) us Historical Provider LAB CYTOLOGY ORDERABLES F inal Result documented in this encounter Visit Diagnoses Not on filedocumented in this encounter Additional Health Concerns Assessment Noted Time PHQ-9 Depression Total Score: 3 05/05/20 24 10:24 AM EST documented as of this encounter Care Teams Strip Cutting Machine Operator Relationship Specialty Start Date End Date Cortney Naidu MD [address] [place] [address] PCP - General Family Medicine 02/10/20 documented as of this encounter
--- OUTSIDE RECORDS SUMMARY | 2024-10-14 13:20 | XMS_ITS | Encounter Summary ---
Author Organization [employer] Address [address] [facility] [address] [place] [address] Care Team Providers Care Shaker Washer Name Role Phone Cortney Naidu MD Primary Care Provider [phone] Reason for Visit * Reason Comments Med Refill Encounter Details Date Type Department Care Team (Late Contact Info) Description 01/05/2024 Refill [facility] MED & PEDS [address] [place] [address] Cortney Naidu MD [address] [place] [address] Social History Tobacco Use Types Packs/Day Years Used Date Smoking Tobacco: Never Smokeless Tobacco: Never Alcohol Use Standard Drinks/Week Comments Never 0 (1 standard drink = 0.6 oz pur e alcohol) Comments Unknown Sex and Gender Information Value Date Recorded Sex Assigned at Female 04/16/2022 10:23 AM EDT Legal Sex Female 10:23 AM EDT Gender Identity Female 04/16/2022 10:23 AM EDT Sexual Orientation Straight 04/16/2022 10 :23 AM EDT documented as of this encounter Plan of Treatment Upcoming Encounters Date Type Department Care Team (Late Contact Info) Description 10/22/2024 3:00 PM EDT Clinical Support [facility] MED & PEDS [address] [place] [address] documented as of this encounter Visit Diagnoses Not on filedocumented in this encounter Care Teams Shaker Washer Relationship Specialty Start Date End Date oCrtney Naidu MD [address] [place] [address] PCP - General Family Medicine 02/10/20 documented as of this encounter
== END 2024-10-14 11:48 | disposition home or self-care (01) ==
LOC: HO.MAMMO 11:47
PROVIDERS: PCP Student in an Organized Health Care Education/Training Program; Visit Provider Student in an Organized Health Care Education/Training Program
DX: N64.89 Other specified disorders of breast (principal)
CPT/HCPCS: 76642; 77062; 77066

== ENCOUNTER → 2024-10-14 12:00 | Outpatient (BNV) | payer OTHER, SELFPAY | PROVIDERS: PCP Student in an Organized Health Care Education/Training Program; Visit Provider Internal Medicine | DX: R92.8 Other abnormal and inconclusive findings on diagnostic imaging of breast (principal); N60.02 Solitary cyst of left breast | CPT/HCPCS: 76642; 77062; 77066 ==

== ENCOUNTER 2025-04-21 14:15 | Outpatient (REF) | payer OTHER, SELFPAY ==
--- NOTE | ~2025-04-21 | MM_ITS ---
EXAMINATION: MM DIAGNOSTIC DIGITAL BREAST TOMOSYNTHESIS, BILATERAL CLINICAL INFORMATION: 6 month follow-up for right breast focal asymmetries. Left annual mammography. COMPARISON: Mammography: Comparison is made with relevant prior exams. TECHNIQUE: Digital breast mammography with tomosynthesis is performed in both the craniocaudal and mediolateral oblique views along with computer-aided detection (CAD). FINDINGS: There are scattered areas of fibroglandular density. Left: There are no significant masses, abnormal calcifications, or other abnormalities. Right: Focal asymmetry upper outer breast posterior depth without prior sonographic correlate not significantly changed from prior. Asymmetry retroareolar region middle to posterior depth not significantly changed from prior. Possible correlate of a simple cyst on ultrasound was seen. Results are provided to the patient at time of visit by the technologist. MM/MM tomosynthesis diagnostic BI IMPRESSION: Left: Negative. Right: Focal asymmetry upper quadrant posterior depth and retroareolar region without prior sonographic correlate are not significantly changed from prior dating back for one year. Recommend one-year diagnostic follow-up to demonstrate 2 years of stability when the patient will be due for bilateral mammography. ASSESSMENT: BI-RADS Category 3: Probably benign RECOMMENDATION: 12 month diagnostic follow up This patient's information was entered into a reminder system with a target due date for their next mammogram. Electronically signed by: Michelle Ceballos DO 04/21/2025 02:59 PM [facility]
--- OUTSIDE RECORDS SUMMARY | 2025-04-21 17:29 | XMS_ITS | Encounter Summary ---
Author Organization [employer] Address [address] [facility] 7[address] [place] [address] Care Team Providers Care Support Technician Name Role Phone Anibal Jones CNP Primary Care Provider [phone] Encounter Details Date Type Department Care Team (Late st Contact Info) Description 04/21/2025 Orders Only [facility] MED & PEDS [address] [place], [place] [phone] Anibal Jones CNP [address] [place] [address] Social History Tobacco Use Types Packs/Day Years [...] as of this encounter Plan of Treatment Not on file documented as of this encounter Procedures Procedure Name Priority Date/Time Associated Diagnosis Comments BI MAMMOGRAM DIAGNOSTIC TOMOSYNTHESIS BILATERAL Routine 04/21/2025 2:25 PM EST documented in this encounter Results * BI Mammogram Diagnostic Tomosynthesis Bilateral (04/21/2025 2:25 PM EST) Anatomical Region Laterality Modality Breast Bilateral Mammography 04/21/2025 2:25 PM EST Narrative 04/21/2025 3:02 PM EST [facility] [address] [place] [address] Mammography Report Signed Patient: Lenore Shultz MR#: [id number] 1 : 1975 Acct:[id number] Age/Sex: 50 / F ADM Date: 04/21/25 Loc: HO.MAMMO Attending Dr: Anibal Jones DETECTOR CAR OPERATOR Ordering Physician: Anibal Jones NP Results: 3P robably Benign Date of Service: 04/21/25 Follow Up: 12 month diagnos tic follow up Procedure(s): MM tomosynthesis diagnostic BI Accession Number(s): [id number] cc: Anibal Jones NP Reason For Exam: RT BR 6MO F/U ASYMMETRY EXAMINATION: MM DIAGNOSTIC DIGITAL BREAST TOMOSYNTHESIS, BILATERAL CLINICAL INFORMATION: 6 month follow-up for right breast focal asymmetries. Left annual mammography. COMPARISON: Mammography: Comparison is made with relevant prior exams. TECHNIQUE: Digital breast mammography with tomosynthesis is performed in both the craniocaudal and mediolateral oblique views along with computer-aided detection (CAD). FINDINGS: There are scattered areas of fibroglandular density. Left: There are no significant masses, abnormal calcifications, or other abnormalities. Right: Focal asymmetry upper outer breast posterior depth without prior sonographic correlate not significantly changed from prior. Asymmetry retroareolar region middle to posterior depth not significantly changed from prior. Possible correlate of a simple cyst on ultrasound was seen. Results are provided to the patient at time of visit by the technologist. MM/MM tomosynthesis diagnostic BI IMPRESSION: Left: Negative. Right: Focal asymmetry upper quadrant posterior depth and retroareolar region without prior sonographic correlate are not significantly changed from prior dating back for one year. Recommend one-year diagnostic follow-up to demonstrate 2 years of stability when the patient will be due for bilateral mammography. ASSESSMENT: BI-RADS Category 3: Probably benign RECOMMENDATION: 12 month diagnostic follow up This patient's information was entered into a reminder system with a target due date for their next mammogram. Electronically signed by: Michelle Ceballos DO 04/21/2025 02:59 PM [facility] Dictated By: Michelle Ceballos DO Signed By: <Electronically signed by Michelle Ceballos DO in OV> 04/21/25 1459 DD/ 1425 TD/TT: 04/21/25 1440 Steam Shovel Engineer: Procedure Note Donotuseinterpreter, Image - 04/21/2025 [facility] [address] [place] [address] Dr. [place], [place] [address] Mammography Report Signed Patient: Lenore Shultz#: [id number] 1 : 1975Acct:[id number] Age/Sex: 50 / FADM Date: 04/21/25 Loc: [facility] Attending Dr: Anibal Jones DETECTOR CAR OPERATOR Ordering Physician: Anibal Jones NPResults: 3P robably Benign Date of Service: 04/21/25Follow Up: 12 month diagnos tic follow up Procedure(s): MM tomosynthesis diagnostic BI Accession Number(s): [id number] cc: Anibal Jones NP Reason For Exam: RT BR 6MO F/U ASYMMETRY EXAMINATION: MM DIAGNOSTIC DIGITAL BREAST TOMOSYNTHESIS, BILATERAL CLINICAL INFORMATION: 6 month follow-up for right breast focal asymmetries. Left annual mammography. COMPARISON: Mammography: Comparison is made with relevant prior exams. TECHNIQUE: Digital breast mammography with tomosynthesis is performed in both the craniocaudal and mediolateral oblique views along with computer-aided detection (CAD). FINDINGS: There are scattered areas of fibroglandular density. Left: There are no significant masses, abnormal calcifications, or other abnormalities. Right: Focal asymmetry upper outer breast posterior depth without prior sonographic correlate not significantly changed from prior. Asymmetry retroareolar region middle to posterior depth not significantly changed from prior. Possible correlate of a simple cyst on ultrasound was seen. Results are provided to the patient at time of visit by the technologist. MM/MM tomosynthesis diagnostic BI IMPRESSION: Left: Negative. Right: Focal asymmetry upper quadrant posterior depth and retroareolar region without prior sonographic correlate are not significantly changed from prior dating back for one year. Recommend one-year diagnostic follow-up to demonstrate 2 years of stability when the patient will be due for bilateral mammography. ASSESSMENT: BI-RADS Category 3: Probably benign RECOMMENDATION: 12 month diagnostic follow up This patient's information was entered into a reminder system with a target due date for their next mammogram. Electronically signed by: Michelle Ceballos DO 04/21/2025 02:59 PM EST Dictated By: Michelle Ceballos DO Signed By: <Electronically signed by Michelle Ceballos DO in OV> 04/21/25 1459 DD/ 1425 TD/TT: 04/21/25 1440 Steam Shovel Engineer: Anibal Jones CNP IMAshleigh BI PROCEDURES Final R esult documented in this encounter Visit Diagnoses Not on filedocumented in this encounter Additional Health Concerns Assessment Noted Time PHQ-9 Depression Total Score: 3 05/05/20 24 10:24 AM EST documented as of this encounter Care Teams Support Technician Relationship Specialty Start Date End Date Anibal Jones CNP [address] [place] [address] PCP - General Family Medicine 03/11/25 documented as of this encounter
--- OUTSIDE RECORDS SUMMARY | 2025-04-21 17:29 | XMS_ITS | Encounter Summary ---
Author Organization [facility] Address [address] [facility] [address]t [place] [address] Care Team Providers Care Orthopedic Technician Name Role Phone Cortney Naidu MD Primary Care Provider [phone] Anibal Jones CNP Primary Care Provider [phone] Reason for Visit * Reason Comments Med Refill Encounter Details Date Type Department Care Team ([facility] st Contact Info) Description 01/24/2025 Refill [facility] [address] [place], [place] [phone] Demi Martin DO [address] [place], [place] [id number] Social History Tobacco Use Types Packs/Day Years [...] on file documented as of this encounter Visit Diagnoses Not on filedocumented in this encounter Additional Health Concerns Assessment Noted Time PHQ-9 Depression Total Score: 3 05/05/20 24 10:24 AM EST documented as of this encounter Care Teams Orthopedic Technician Relationship Specialty Start Date End Date Cortney Naidu MD [address] [place] [address] PCP - General Family Medicine 02/10/20 03/10/25 Anibal Jones CNP [address] [place] [address] PCP - General Family Medicine 03/11/25 documented as of this encounter
--- OUTSIDE RECORDS SUMMARY | 2025-04-21 17:29 | XMS_ITS | Clinical Summary ---
Author Organization [facility] Address [address] [place] [address] Care Team Providers Care Faucets Assembler Name Role Phone Unavailable Primary Care Provider [...] Cervical Cancer Screening: P ap Smear 01/08/1997 Depression Screening 06/17/2024 COVID-19 Vaccine (1 - 2023-2 5 season) 2025 Influenza Vaccine (#1) 2025 RSV Immunization Adult Patie nts (1 - 1-dose 75+ series) 01/08/2051 HIB Vaccines Aged Out No longer eligi [...] 5 Years) and At-Risk Patients (6 to 49 Years) Aged Out No longer eligible b ased on patient's age to complete this topic RSV Immunization Patients Un melissa 20 months Aged Out No longer eligible b ased on patient's age to complete this topic Varicella Vaccines Aged Out No longer eligible based on patient's age to complete this topic
--- OUTSIDE RECORDS SUMMARY | 2025-04-21 17:29 | XMS_ITS | Data Portability ---
Author Organization [facility] [address] Address [address] [place] [address] Care Team Providers Care Prepared Foods Production Team Member Name Role Phone [facility] Primary Care Provider [phone] Assessment No assessment recorded. Plan of Treatment Reminders Order Date Submit Date Provider Last Modified By Organization Details Last Modified Time Details Appointments None recorded. Lab None recorded. Referral None recorded. Procedures None recorded. Surgeries None recorded. Imaging None recorded. Medication Orders amoxicillin 875 mg-potassiu m clavulanate 125 mg tablet 2022 023 [facility]armacy #[id number], [address] [place], [address], 3 10:58:05 prednisone 20 mg tablet 2022 023 [facility]armacy #[id number], [address] [place], [address], 3 10:58:05 Patient TargetsNo targets recorded. Patient Instructions Encounter Date Encounter Id Patient Instructions Last Modified By Organization Details Last Modified Time 07/15/2022 [id number] earache: care instructions Not available 07/15/2022 10:58:03 [...] care for yourself at home? Take an dmhs-msp-ziiprtq pain medicine. Avoid Ibuprofen, Aleve and Aspirin if . If the doctor prescribed antibiotics, take them as directed. Do not stop taking them just because you feel better. You need to take the full course of antibiotics. Be careful when taking xayc-dsc-bnypdzl cold or influenza (flu) medicines and Tylenol [...] taking a prescription pain medicine, take an ipiu-nsj-aevsayg medicine, such as acetaminophen (Tylenol), ibuprofen (Advil, [...] blood by Pulse oximetry Heart rate Systolic And Diastolic Provider Name and Address Organization Details Last Updated DateTime 3 152.4 cm 35 kg/m2 21360.0 3 g 10 97.9 [degF] 18 /min 97 % 97 % 91 /min 131/84 mm[Hg] ERICA Lopez [facility] 3 10:19:59 Social History Question Answer Notes LastModified by myaNUMBERizat ion Details LastModified Time Tobacco Smoking Status Never Smoker [facility] 07/15/2022 10:18:52 Have You Had Direct Contact, Or Contact During Intimacy, With Monkeypox Rash, Scabs, Or Body Fluids From A Person With Monkeypox? No Information not available 07/15/2022 Have You Recently Traveled Abroad? No Information not available 07/15/2022 Sex: Unknown Functional Status Question Answer Note LastModified by Organizat ion Details LastModified Time Do you use any illicit or recreational drugs? No Information not available 07/15/2022 Do you or have you ever used any other forms of tobacco or nicotine? No Information not available 07/15/2022 What is your level of alcohol consumption? None Information not available 07/15/2022 Mental Status None recorded. Family History Relationship [...] Diagnosis SNOMED-CT Code Diagnosis ICD10 Code Diagnosis IMO Codes Diagnosis Note [id number] [facility] [address] [facility] [place] [address] 06/25/2020 18:45:01 06/25/2020 20:02:48 [id number] [address] [place] [address] 12/05/2018 11:26:09 12/05/2018 11:41:39 [id number] [address] [place] [address] 07/08/2020 17:47:41 07/08/2020 19:31:11 [id number] Agustín Saini NP [address] [place] [address] 07/15/2022 10:03:49 07/15/2022 11:03:34 Acute right otitis media 472414843 H66.91 Health Concerns Section Related Observation LastModified by Organization Detai ls LastModified Time None Recorded Concern Status LastModified by Organization Details LastModified Time None Recorded Advance Directives Directive None Recorded Payers Insurance Date Sequence Insurance Name Policy Number Policy Barton Covered Member ID Barton Member ID Guarantor Name 07/15/2022 1 [facility] (O) [id number] Lenore Praterado [id number] Lenore Lexii Notes Date Note Type Note Provider Name and Address Organization Details Recorded Time 07/15/2022 text/html Ear Pain Brief HPIReported by Patient CongestionReported by Patientright ear pain , nasal congestion with post nasal drip x 3 days. denies nay fever or fever with chills. no SOB or respiratory distress. Agustín Saini NP [address] [place], [address], [place] - [facility] 07/15/2022 10:58:59 OBGyn Episode No OBEpisode recorded.
--- OUTSIDE RECORDS SUMMARY | 2025-04-21 17:30 | XMS_ITS | Encounter Summary ---
Author Organization [employer] Address [address] [place] [address] [place], [place] [address] Care Team Providers Care Joiners Supervisor Name Role Phone Cortney Naidu MD Primary Care Provider [phone] Anibal Jones CNP Primary Care Provider [phone] Reason for Visit * Reason Comments Med Refill Encounter Details Date Type Department Care Team ([facility] st Contact Info) Description 01/05/2024 Refill [facility] [address] [place] [address] Cortney Naidu MD [address] [place] [address] Social History Tobacco Use Types Packs/Day Years [...] on filedocumented in this encounter Care Teams Joiners Supervisor Relationship Specialty Start Date End Date Cortney Naidu MD [address] [place] [address] PCP - General Family Medicine 02/10/20 03/10/25 Anibal Jones CNP [address] [place] [address] PCP - General Family Medicine 03/11/25 documented as of this encounter
--- OUTSIDE RECORDS SUMMARY | 2025-04-21 17:30 | XMS_ITS | Clinical Summary ---
Author Organization [employer] Address [address] [facility] [address] [place] [address] Care Team Providers Care Car Chaser Name Role Phone Anibal Jones SCOOBY Primary Care Provider [phone] Allergies No known active allergies Medications diphenhydrAMINE (BENADryl) 25 MG capsule Take 2 capsules (50 mg) by mouth if needed at bedtime for itching. May take 1-2 capsules prn rashor itching 30 capsule 3 Active fluticasone (Flonase Allergy Relief) 50 MCG/ACT nasal spray Administer 1 spray into each nostril Once per day. Shake gently. Before first use, prime pump. After use, clean tip and replace cap. 16 g 12 4 06/09/20 25 Active albuterol 108 (90 Base) MCG/ACT inhaler Inhale 2 puffs every 4 (four) hours if needed for wheezing or shortness of breath. 18 g 1 4 06/09/20 25 Active Spacer/Aero-Hol ding Chambers (OptiChamber Hollie) misc 1 each every 4 (four) hours if needed (asthma). 1 each 4 Active hydroCHLOROthia zide (HYDRODiuril) 25 MG tablet Take 1 tablet (25 mg) by mouth Once per day. 30 tablet 11 5 09/18/19 26 Active cetirizine (ZyrTEC) 10 MG tablet Take 1 tablet (10 mg) by mouth Once per day. 30 tablet 5 09/18/19 26 Active Ketotifen Fumarate (Alaway) 0.035 % solution Administer 1 drop into affected eye(s) if needed in the morning and at bedtime (eye itching). 10 mL 2 5 Active losartan (Cozaar) 100 MG tablet Take 1 tablet (100 mg) by mouth Once per day. 90 tablet 3 5 Active Active Problems Problem Noted Date Diagnosed Date Mild intermittent asthma without complication Cervical cancer screening 05/12/2024 Assessment & Plan [...] Encounters Date Type Department Care Team Description 04/21/2025 Orders Only [facility] [address] [place] [address] Anibal Jones CNP 03/11/2025 9:30 AM EDT Office Visit [facility] [address] [place] [address] Cortney Naidu MD Primary hypertension (Primary Dx); Mild intermittent asthma without complication 03/11/2025 Travel 03/10/2025 Telephone [facility] [address] [place] [address] Cortney Naidu MD Chart Prep 03/04/2025 Refill [facility] [address] [place] [address] Cortney Naidu MD 01/24/2025 Refill [facility] [address] [place] [phone] Demi Martin DO from Last 3 Months Immunizations Immunization Administration Dates Next Due Tdap 05/12/2024 Family [...] Sign Reading Time Taken Comments Blood Pressure 140/90 03/11/2025 9:31 AM EDT Pulse 89 03/11/2025 9:31 AM EDT Temperature 36.4 C (97.5 F) 03/11/2025 9:31 AM EDT Respiratory Rate 18 03/11/2025 9:31 AM EDT Oxygen Saturation 96% 09/17/2024 10:08 AM EDT Inhaled Oxygen Concentration - - Weight 81.2 kg (179 lb) 03/11/2025 9:31 AM EDT Height 158.1 cm (5' 2.25 ) 03/11/2025 9:31 AM ED T Body Mass Index 32.48 03/11/2025 9:31 AM EDT Plan of Treatment Health Maintenance Due Date Last Done Comments CT Colonography 1975 Colonoscopy 1975 FIT 1975 Sigmoidoscopy 1975 Disability Screening 1975 Family Planning (PISQ) 01/08/1991 Hepatitis B Vaccines (1 of 3 - 19+ 3-dose series) 01/08/1995 Pneumococcal Vaccine: Pediatrics (0 to 5 Years) and At-Risk Patients (6 to 49) Years (1 of 2 - PCV) 01/08/1995 COVID-19 Vaccine ( - 2024- season) 2025 08/27/2021, 12/11/2020, 11/20/2020 Depression Screening 05/05/2025 05/05/2024, 05/05/20 24 SDOH Screening 05/05/2025 05/05/2024 FOBT 05/25/2025 05/25/2024 Influenza Vaccine (#1) 2025 Postp oned from 02/15/2025 (Patient Refused) Zoster Vaccines (1 of 2) 01/08/2026 Alcohol/Substance Use Screening 03/11/2026 03/11/2025 Tobacco Screening 03/11/2026 03/11/2025 Mammogram 04/21/2027 04/21/2025, 04/3 , 10/14/2024, Additional history exists Colorectal Cancer Screening 05/25/2027 FIT DNA/Cologuard 05/25/2027 05/25/2024 Lipid Panel 05/05/2029 05/05/2024, 12/15/2020 Cervical Cancer Screening 05/12/2029 HPV/Cotest 05/12/2029 05/12/2024 Pap Smear 05/12/2029 05/12/2024 DTaP/Tdap/Td Vaccines (2 - Td or Tdap) 05/12/2034 05/12/2024 RSV Patients and [...] TOMOSYNTHESIS BILATERAL Routine 04/21/2025 2:25 PM EST LAB COLOGUARD COLON CANCER SCREEN Routine 05/25/2024 9:15 AM [...] Recently Relevant to Health Maintenance Results * BI Mammogram Diagnostic Tomosynthesis Bilateral (04/21/2025 2:25 PM EST) Anatomical Region Laterality Modality Breast Bilateral Mammography 04/21/2025 2:25 PM EST Narrative 04/21/2025 3:02 PM EST [facility] [address] [place], [place] [address] Mammography Report Signed Patient: Lenore Shultz MR#: [id number] 1 : 1975 Acct:[id number] Age/Sex: 50 / F ADM Date: 04/21/25 Loc: [facility] Attending Dr: Anibal Jones LITHOGRAPHIC PRESS OPERATOR APPRENTICE Ordering Physician: Anibal Jones NP Results: 3P robably Benign Date of Service: 04/21/25 Follow Up: 12 month diagnos tic follow up Procedure(s): MM tomosynthesis diagnostic BI Accession Number(s): [id number] cc: Anibal Jones NP Reason For Exam: [...] Michelle Ceballos DO 04/21/2025 02:59 PM EST Workstation: [id number] Dictated By: Michelle Ceballos DO Signed By: <Electronically signed by Michelle Ceballos DO in OV> 04/21/25 1459 DD/ 1425 TD/TT: 04/21/25 1440 Casino Operations Supervisor: Procedure Note Donotuseinterpreter, Image - 04/21/2025 [facility] [address] [place] [address] Mammography Report Signed Patient: Lenore ShultzMR#: [id number] 1 : 1975Acct:[id number] Age/Sex: 50 / FADM Date: 04/21/25 Loc: [facility] Attending Dr: Anibal Jones LITHOGRAPHIC PRESS OPERATOR APPRENTICE Ordering Physician: Anibal Jones NPResults: 3P robably Benign Date of Service: 04/21/25Follow Up: 12 month diagnos tic follow up Procedure(s): MM tomosynthesis diagnostic BI Accession Number(s): [id number] cc: Anibal Jones NP Reason For Exam: [...] Michelle Ceballos DO 04/21/2025 02:59 PM EST Workstation: [employer] Dictated By: Michelle Ceballos DO Signed By: <Electronically signed by Michelle Ceballos DO in OV> 04/21/25 1459 DD/ 1425 TD/TT: 04/21/25 1440 Casino Operations Supervisor: [facility] IMG BI PROCEDURES Final R esult * Cologuard?? colon cancer screening (05/25/2024 9:15 AM EST) Cologuard Result Negative Negative 06/03/20 12:49 AM EST [facility] (CLIA #:[id number]) Comment: NEGATIVE TEST RESULT. A negative Cologuard result indicates a low likelihood that a colorectal cancer (CRC) or advanced adenoma (adenomatous polyps with more advanced pre-malignant features) is present. The chance that a person with a negative Cologuard test has a colorectal cancer is less than 1 in 1500 (negative predictive value >99.9%) or has an advanced adenoma is less than 5.3% (negative predictive value 94.7%). These data are based on a prospective cross-sectional study of 10,000 individuals at average risk for colorectal cancer who were screened with both Cologuard and colonoscopy. (Mohan Mccauley al, N Engl J Med 2014;370(14):0563-7656) The normal value (reference range) for this assay is negative. COLOGUARD RE-SCREENING RECOMMENDATION: Periodic colorectal cancer screening is an important part of preventive healthcare for asymptomatic individuals at average risk for colorectal cancer. Following a negative Cologuard result, the [place] [employer] and U.S. Multi-Society Task Force screening guidelines recommend a Cologuard re-screening interval of 3 years. References: [place] [employer] Guideline for Colorectal Cancer Screening: https://www.cancer.org/cancer/zpqdn-qmuskm-xlhrjg/ksgssvxuf-tgazkhwwe-nbixjyk/ac s-rec ommendations.html.; Anurag DK, Robert CR, Sierra ReyesK, Colorectal Cancer Screening: Recommendations for Physicians and Patients from the U.S. Multi-Society Task Force on Colorectal Cancer Screening , Am J Gastroenterology 2017; 112:5584-9911. TEST DESCRIPTION: Composite algorithmic analysis of stool DNA-biomarkers with hemoglobin immunoassay. Quantitative values of individual biomarkers are not [...] (Mohan Mccauley al, N Engl J Med 2014;370(14):7821-0851.) Cologuard may produce a false negative or false positive result (no colorectal cancer or precancerous polyp present at colonoscopy follow up). A negative Cologuard test result does not guarantee the absence of CRC or advanced adenoma (pre-cancer). The current Cologuard screening interval is every 3 years. ([place] [employer] Society and U.S. Multi-Society Task Force). Cologuard performance data in a 10,000 patient pivotal study using colonoscopy as the reference method can be accessed at the following location: www.BeliefNet.QuantiSense/results. Additional description of the Cologuard test process, warnings and precautions can be found at www.colBerry Whiterd.com. Stool specimen (specimen) 05/25/2024 9:15 AM EST 05/26/2024 1:24 PM EST us Cortney Naidu MD LAB MOLECULAR DIAGNOSTICS ERMIAS TSE Final Result [facility] (CLIA #:[id number]) [address] [place] [address], * Pap Smear (05/12/2024 10:20 AM EST) Swab Cervix uteri structure / Unknown 05/12/2024 10:20 AM EST 05/13/2024 8:30 AM EST Narrative [facility] - 05/20/2024 10:42 AM EST ----- ------- Name: Lenore Shultz Age/Sex: 49/F : 1975 Unit#: [id number] Attend Dr: Mariajose Isaac MD Re05/12/24 Status: DEP REF Location: HO.LNP Disch: ----- ------- SPEC : [id number] RECD: 05/13/24 STATUS: YOLANDA [facility] NUM: [id number] LUCRECIA: 05/12/24-[address] [facility] [address]: Mariajose Isaac MD ENTERED: 05/13/24 SP TYPE: Pap Smr OTHR DR: ORDERED: Pap Smear Interpretation Satisfactory for evaluation. Negative for intraepithelial lesion or malignancy. Coccobacilli consistent with shift in vaginal zuhair. HPV High Risk: Negative HPV Genotyping 16: Negative HPV Genotyping 18: Negative ----- ------- Signed (signature on file) MARCIANO Cates (ASCP) 05/20/24 1042 ----- ------- END OF REPORT Mariajose Isaac MD LAB CYTOLOGY ORDERABLES Final Result [facility] [address] [place] [address] [phone] * HPV mRNA E6/E7 w/Reflex to HPV Genotypes 16, 18/45 (05/12/2024 12:00 AM EST) Historical Provider LAB CYTOLOGY ORDERABLES F inal Result * Hepatitis C Antibody with Reflex to HCV, RNA, Quantitative, Real-Time PCR (05/05/2024 11:22 AM EST) Pathologist [facility] Hepatitis C Antibody Nonreactive Nonreactive [facility] Comment:Antibodies to HCV no t detected; does not exclude early acuteHCV infection. Blood Venous blood specimen / Unknown 05/05/2024 11:22 AM EST 05/05/2024 2:11 PM EST Cortney Naidu MD LAB BLOOD ORDERABLES Final Resul t Performing Organization Address City[facility]/ZIP Co de Phone Number [facility] [address] [place] [phone] * HIV-1/2 Antigen and Antibodies, Fourth Generation, with Reflexes (05/05/2024 11:22 AM EST) [facility] HIV AB/AG Nonreactive Nonreactive [facility] Comment:HIV-1 p24 Ag and/or HIV-1/HIV-2 Ab not detected.A test result that is nonreactive does not exclude thepossibility of exposure to or infection with HIV-1 and/orHIV-2. Nonreactive results in this assay for individualswith prior exposure to HIV-1 and/or HIV-2 may be due toantigen and antibody levels that are below the limit ofdetection of this assay.The SequentaniLiterably HIV Ag/Ab Combo assay result andsupplemental assay results should be interpreted inconjunction with the patient's clinical presentation,history and other laboratory results. If the results areinconsistent with clinical evidence, additional testing issuggested to confirm the result. Blood Venous blood specimen / Unknown 05/05/2024 11:22 AM EST 05/05/2024 2:11 PM EST Cortney Naidu MD LAB BLOOD ORDERABLES Final Resul t Performing Organization Address [facility]/ZIP Co de Phone Number [facility] [address] [place] [phone] * (ABNORMAL) Lipid Panel, Standard (05/05/2024 11:22 AM EST) Pathologist [facility] Triglycerides 150(H) <150 mg/dL [facility] Comment:Desirable Triglyceri de: less than 150 mg/dLBorderline High Triglyceride 150-199 mg/dLHigh Triglyceride: 200-499 mg/dLVery High Triglyceride: greater than or equal to 5OO mg/dL Cholesterol 185 <200 mg/dL [facility] Comment:Desirable Cholestero l: less than 200 mg/dLBorderline High Cholesterol: 200-239 mg/dLHigh Cholesterol: greater than 239 mg/dL LDL Cholesterol Calculated 112(H) <100 mg/dL [facility] Comment:Desirable LDL: less than 100 mg/dLNear Optimal/Above Optimal LDL: 110- 129 mg/dLBorderline High LDL: 130-159 mg/dLHigh LDL: 160-189 mg/dLVery High LDL: greater than or equal to 190 mg/dL HDL Cholesterol 43 >40 mg/dL [facility] Comment:Desirable HDL: great er than 40 mg/dL Note: This HDL assay may give artificially low results in patients with liver disease. Blood Venous blood specimen / Unknown 05/05/2024 11:22 AM EST 05/05/2024 2:11 PM EST us Cortney Naidu MD LAB BLOOD ORDERABLES Final Resul t [facility] [address] [place] [phone] from Last 3 Months or Most Recently Relevant to Health Maintenance Insurance [facility] , [address] [place] [address] Care Teams Car Chaser Relationship Specialty Start Date End Date Anibal Jones CNP [address] [place] [phone] PCP - General Family Medicine 03/11/25
--- OUTSIDE RECORDS SUMMARY | 2025-04-21 17:30 | XMS_ITS | Encounter Summary ---
Author Organization [employer] Address [address] [facility] [address] [place] [address] Care Team Providers Care Lithographic Plate Maker Name Role Phone Cortney Naidu MD Primary Care Provider [phone] Anibal Jones CNP Primary Care Provider [phone] Encounter Details Date Type Department Care Team (Late st Contact Info) Description 10/13/2024 Orders Only [facility] [address] [place] [address] Angeline Johns Social History Tobacco Use Types [...] AM EDT documented as of this encounter Miscellaneous Notes * Result Encounter Note - Cortney Naidu MD - 10/13/2024 9:38 AM EDT Needs tracking documented in this encounter Plan of Treatment Not on file documented as of this encounter Procedures Procedure Name Priority Date/Time Associated Diagnosis Comments BI US BREAST LIMITED BILATERAL Routine 10/14/2024 12:30 PM EDT BI MAMMOGRAM DIAGNOSTIC TOMOSYNTHESIS BILATERAL Routine 10/14/2024 12:00 PM EDT HPV MRNA E6/E7 REFLEX TO HPV 16, 18/45 Routine 05/12/2024 12:00 AM EST documented in this encounter Results * BI US Breast Limited Bilateral (10/14/2024 12:30 PM EDT) Anatomical Region Laterality Modality Breast Bilateral Ultrasound 10/14/2024 12:3 0 PM EDT Narrative 10/14/2024 2:59 PM EDT [facility] [address] [place], [place] [address] Ultrasound Report Signed Patient: Lenore Shultz MR#: [id number] 1 : 1975 Acct:[id number] Age/Sex: 49 / F ADM Date: 10/14/24 Loc: HO.MAMMO Attending Dr: Cortney Naidu MD Ordering Physician: Cortney Naidu MD Date of Service: 10/14/24 Procedure(s): US breast BI limited mamm only Accession Number(s): [id number] cc: Cortney Naidu MD EXAMINATION: MM DIAGNOSTIC DIGITAL BREAST TOMOSYNTHESIS, BILATERAL Bilateral Limited ultrasound. CLINICAL INFORMATION: Call back from screening for bilateral asymmetries. COMPARISON: Mammography: Comparison is made with relevant prior exams. TECHNIQUE: Digital breast mammography with tomosynthesis is performed in both the craniocaudal and mediolateral oblique views along with computer-aided detection (CAD). FINDINGS: The breasts are heterogeneously dense, which may obscure small masses (ACR BI-RADS breast composition Category c). Left: The previously seen asymmetry in the lower left breast on MLO view does not persist on additional imaging projections and likely represented overlapping breast tissue. There are no suspicious calcifications masses or other abnormal findings. Targeted color Doppler ultrasound scanning in the lower central breast demonstrates a simple cyst at 6:00 2 cm from the nipple measuring 7 x 6 x 5 mm otherwise scanning from 40 8:00 demonstrates normal fibroglandular breast tissue. Right: Focal asymmetry in the upper outer breast posterior depth persist on additional imaging projections. In the retroareolar region there are a few subcentimeter oval masses. No suspicious calcifications or other abnormal findings. Targeted color Doppler ultrasound scanning in the upper outer quadrant demonstrates normal fibronodular breast tissue. Targeted color Doppler ultrasound scanning in the retroareolar region demonstrates a hypoechoic oval simple cyst at 9:00 5 cm from nipple measuring 5 x 4 x 4 mm with likely correlates with the oval mass on mammography. Results are provided to the patient at time of visit by the technologist. US/US breast BI limited mamm only IMPRESSION: Left: Simple cyst on ultrasound. Benign. Right: 1. Focal asymmetry in the upper outer quadrant posterior depth without sonographic correlate. Recommend six-month follow-up mammography for further evaluation of stability. 2. Retroareolar oval masses one of which was demonstrated to be a simple to minimally, located cyst on ultrasound. Recommend 6 month follow-up mammography for further evaluation of stability. ASSESSMENT: BI-RADS BI-RADS 3 - Probably benign finding(s) - 6 month follow-up suggested RECOMMENDATION: 6 Month F/U This patient's information was entered into a reminder system with a target due date for their next mammogram. Electronically signed by: Michelle Ceballos DO 10/14/2024 02:56 PM EDT RP Dictated By: Michelle Ceballos DO Signed By: <Electronically signed by Michelle Ceballos DO in OV> 10/14/24 1456 DD/ 1230 TD/TT: 10/14/24 1312 Cable Installer Repairer: Procedure Note Donotuseinterpreter, Image - 10/14/[facility] [address] [place], [place] [address] Ultrasound Report Signed Patient: Chrissie Shultz#: [id number] 1 : 1975Acct:[id number] Age/Sex: 49 / FADM Date: 10/14/24 Loc: HO.MAMMO Attending Dr: Cortney Naidu MD Ordering Physician: Cortney Naidu MD Date of Service: 10/14/24 Procedure(s): US breast BI limited mamm only Accession Number(s): [id number] cc: Cortney Naidu MD EXAMINATION: MM DIAGNOSTIC DIGITAL BREAST TOMOSYNTHESIS, BILATERAL Bilateral Limited ultrasound. CLINICAL INFORMATION: Call back from screening for bilateral asymmetries. COMPARISON: Mammography: Comparison is made with relevant prior exams. TECHNIQUE: Digital breast mammography with tomosynthesis is performed in both the craniocaudal and mediolateral oblique views along with computer-aided detection (CAD). FINDINGS: The breasts are heterogeneously dense, which may obscure small masses (ACR BI-RADS breast composition Category c). Left: The previously seen asymmetry in the lower left breast on MLO view does not persist on additional imaging projections and likely represented overlapping breast tissue. There are no suspicious calcifications masses or other abnormal findings. Targeted color Doppler ultrasound scanning in the lower central breast demonstrates a simple cyst at 6:00 2 cm from the nipple measuring 7 x 6 x 5 mm otherwise scanning from 40 8:00 demonstrates normal fibroglandular breast tissue. Right: Focal asymmetry in the upper outer breast posterior depth persist on additional imaging projections. In the retroareolar region there are a few subcentimeter oval masses. No suspicious calcifications or other abnormal findings. Targeted color Doppler ultrasound scanning in the upper outer quadrant demonstrates normal fibronodular breast tissue. Targeted color Doppler ultrasound scanning in the retroareolar region demonstrates a hypoechoic oval simple cyst at 9:00 5 cm from nipple measuring 5 x 4 x 4 mm with likely correlates with the oval mass on mammography. Results are provided to the patient at time of visit by the technologist. US/US breast BI limited mamm only IMPRESSION: Left: Simple cyst on ultrasound. Benign. Right: 1. Focal asymmetry in the upper outer quadrant posterior depth without sonographic correlate. Recommend six-month follow-up mammography for further evaluation of stability. 2. Retroareolar oval masses one of which was demonstrated to be a simple to minimally, located cyst on ultrasound. Recommend 6 month follow-up mammography for further evaluation of stability. ASSESSMENT: BI-RADS BI-RADS 3 - Probably benign finding(s) - 6 month follow-up suggested RECOMMENDATION: 6 Month F/U This patient's information was entered into a reminder system with a target due date for their next mammogram. Electronically signed by: Michelle Ceballos DO 10/14/2024 02:56 PM EDT Dictated By: Michelle Ceballos DO Signed By: <Electronically signed by Michelle Ceballos DO in OV> 10/14/24 1456 DD/ 1230 TD/TT: 10/14/24 1312 Cable Installer Repairer: us Cortney Naidu MD IM US PROCEDURES Edited Result - Final * BI Mammogram Diagnostic Tomosynthesis Bilateral (10/14/2024 12:00 PM EDT) Anatomical Region Laterality Modality Breast Bilateral Mammography 10/14/2024 12:0 0 PM EDT Narrative 10/14/2024 2:59 PM EDT [facility] [address] [place] [address] Mammography Report Signed Patient: Lenore Shultz MR#: [id number] 1 : 1975 Acct:[id number] Age/Sex: 49 / F ADM Date: 10/14/24 Loc: HO.MAMMO Attending Dr: Cortney Naidu MD Ordering Physician: Cortney Naidu MD Results: 3.6MPro bably Benign Finding - Short 6 M F/U Suggested Date of Service: 10/14/24 Follow Up: 6 Month F/U Procedure(s): MM tomosynthesis diagnostic BI Accession Number(s): [id number] cc: Cortney Naidu MD EXAMINATION: MM DIAGNOSTIC DIGITAL BREAST TOMOSYNTHESIS, BILATERAL Bilateral Limited ultrasound. CLINICAL INFORMATION: Call back from screening for bilateral asymmetries. COMPARISON: Mammography: Comparison is made with relevant prior exams. TECHNIQUE: Digital breast mammography with tomosynthesis is performed in both the craniocaudal and mediolateral oblique views along with computer-aided detection (CAD). FINDINGS: The breasts are heterogeneously dense, which may obscure small masses (ACR BI-RADS breast composition Category c). Left: The previously seen asymmetry in the lower left breast on MLO view does not persist on additional imaging projections and likely represented overlapping breast tissue. There are no suspicious calcifications masses or other abnormal findings. Targeted color Doppler ultrasound scanning in the lower central breast demonstrates a simple cyst at 6:00 2 cm from the nipple measuring 7 x 6 x 5 mm otherwise scanning from 40 8:00 demonstrates normal fibroglandular breast tissue. Right: Focal asymmetry in the upper outer breast posterior depth persist on additional imaging projections. In the retroareolar region there are a few subcentimeter oval masses. No suspicious calcifications or other abnormal findings. Targeted color Doppler ultrasound scanning in the upper outer quadrant demonstrates normal fibronodular breast tissue. Targeted color Doppler ultrasound scanning in the retroareolar region demonstrates a hypoechoic oval simple cyst at 9:00 5 cm from nipple measuring 5 x 4 x 4 mm with likely correlates with the oval mass on mammography. Results are provided to the patient at time of visit by the technologist. MM/MM tomosynthesis diagnostic BI IMPRESSION: Left: Simple cyst on ultrasound. Benign. Right: 1. Focal asymmetry in the upper outer quadrant posterior depth without sonographic correlate. Recommend six-month follow-up mammography for further evaluation of stability. 2. Retroareolar oval masses one of which was demonstrated to be a simple to minimally, located cyst on ultrasound. Recommend 6 month follow-up mammography for further evaluation of stability. ASSESSMENT: BI-RADS BI-RADS 3 - Probably benign finding(s) - 6 month follow-up suggested RECOMMENDATION: 6 Month F/U This patient's information was entered into a reminder system with a target due date for their next mammogram. Electronically signed by: Michelle Ceballos DO 10/14/2024 02:56 PM EDT RP Dictated By: Michelle Ceballos DO Signed By: <Electronically signed by Michelle Ceballos DO in OV> 10/14/24 1456 DD/ 1200 TD/TT: 10/14/24 1222 Cable Installer Repairer: Procedure Note Donotuseinterpreter, Image - 10/14/2024 [facility] [address] [place] [address] Mammography Report Signed Patient: Lenore ShultzMR#: [id number] 1 : 1975Acct:[id number] Age/Sex: 49 / FADM Date: 10/14/24 Loc: HO.MAMMO Attending Dr: Cortney Naidu MD Ordering Physician: Cortney Naidu MDResults: 3.6MPro bably Benign Finding - Short 6 M F/U Suggested Date of Service: 10/14/24Follow Up: 6 Month F/U Procedure(s): MM tomosynthesis diagnostic BI Accession Number(s): [id number] cc: Cortney Naidu MD EXAMINATION: MM DIAGNOSTIC DIGITAL BREAST TOMOSYNTHESIS, BILATERAL Bilateral Limited ultrasound. CLINICAL INFORMATION: Call back from screening for bilateral asymmetries. COMPARISON: Mammography: Comparison is made with relevant prior exams. TECHNIQUE: Digital breast mammography with tomosynthesis is performed in both the craniocaudal and mediolateral oblique views along with computer-aided detection (CAD). FINDINGS: The breasts are heterogeneously dense, which may obscure small masses (ACR BI-RADS breast composition Category c). Left: The previously seen asymmetry in the lower left breast on MLO view does not persist on additional imaging projections and likely represented overlapping breast tissue. There are no suspicious calcifications masses or other abnormal findings. Targeted color Doppler ultrasound scanning in the lower central breast demonstrates a simple cyst at 6:00 2 cm from the nipple measuring 7 x 6 x 5 mm otherwise scanning from 40 8:00 demonstrates normal fibroglandular breast tissue. Right: Focal asymmetry in the upper outer breast posterior depth persist on additional imaging projections. In the retroareolar region there are a few subcentimeter oval masses. No suspicious calcifications or other abnormal findings. Targeted color Doppler ultrasound scanning in the upper outer quadrant demonstrates normal fibronodular breast tissue. Targeted color Doppler ultrasound scanning in the retroareolar region demonstrates a hypoechoic oval simple cyst at 9:00 5 cm from nipple measuring 5 x 4 x 4 mm with likely correlates with the oval mass on mammography. Results are provided to the patient at time of visit by the technologist. MM/MM tomosynthesis diagnostic BI IMPRESSION: Left: Simple cyst on ultrasound. Benign. Right: 1. Focal asymmetry in the upper outer quadrant posterior depth without sonographic correlate. Recommend six-month follow-up mammography for further evaluation of stability. 2. Retroareolar oval masses one of which was demonstrated to be a simple to minimally, located cyst on ultrasound. Recommend 6 month follow-up mammography for further evaluation of stability. ASSESSMENT: BI-RADS BI-RADS 3 - Probably benign finding(s) - 6 month follow-up suggested RECOMMENDATION: 6 Month F/U This patient's information was entered into a reminder system with a target due date for their next mammogram. Electronically signed by: Michelle Ceballos DO 10/14/2024 02:56 PM EDT Dictated By: Michelle Ceballos DO Signed By: <Electronically signed by Michelle Ceballos DO in OV> 10/14/24 1456 DD/ 1200 TD/TT: 10/14/24 1222 Cable Installer Repairer: Cortney Naidu MD IMG BI PROCEDURES Edited Result - Final * HPV mRNA E6/E7 w/Reflex to HPV Genotypes 16, 18/45 (05/12/2024 12:00 AM EST) Historical Provider LAB CYTOLOGY ORDERABLES F inal Result documented in this encounter Visit Diagnoses Not on filedocumented in this encounter Additional Health Concerns Assessment Noted Time PHQ-9 Depression Total Score: 3 05/05/20 24 10:24 AM EST documented as of this encounter Care Teams Lithographic Plate Maker Relationship Specialty Start Date End Date Cortney Naidu MD [address] [place] [id number] PCP - General Family Medicine 02/10/20 03/10/25 Anibal Jones CNP [address] [place] [id number] PCP - General Family Medicine 03/11/25 documented as of this encounter
== END 2025-04-21 14:16 | disposition home or self-care (01) ==
LOC: HO.MAMMO 14:15
DX: N64.89 Other specified disorders of breast (principal)
CPT/HCPCS: 77062; 77066

== ENCOUNTER → 2025-04-21 14:25 | Outpatient (BNV) | payer OTHER, SELFPAY | PROVIDERS: Visit Provider Internal Medicine | DX: R92.8 Other abnormal and inconclusive findings on diagnostic imaging of breast (principal) | CPT/HCPCS: 77062; 77066 ==